=== PATIENT | female | born 1975 | race African-American/Black ===

== ENCOUNTER 2017-09-15 15:45 | Observation (INO) | payer MEDICAID ==
[~2017-09-15] VITALS: Ht 162.6 cm; Wt 72.6 kg
[2017-09-15] MEDS ORDERED: RIVA10TA PO (15:51)
[2017-09-15] MEDS ORDERED: FURO-152 PO (15:51)
[2017-09-15] MEDS ORDERED: ONDANSETRON HCL 4MG/2ML VIAL IV STA (16:21)
[2017-09-15] MEDS ORDERED: SODIUM CHLORIDE 0.9% 1,000 ML IV ONE ×3 (16:21→19:56)
[2017-09-15 16:51] LABS: BASOPHILS % 0.3 % (0.0-2.0); EOSINOPHILS % 0.1 % (0.0-5.0); HEMATOCRIT. 30.7 % (36.0-48.0); HEMOGLOBIN. 9.8 g/dL (12.0-16.0); MEAN CORPUSCULAR HEMOGLOBIN 29.4 pg (28.0-32.0); MEAN CORPUSCULAR VOLUME 91.7 fL (81.0-99.0); MEAN PLATELET VOLUME 9.7 fl (7.4-10.4); MONOCYTES % 3.5 % (2.0-8.0); NEUTROPHILS % 73.1 % (40.0-76.0); PLATELET 129 x1000/uL (130-400); RED BLOOD CELL COUNT 3.34 mill/uL (4.2-5.4); RED CELL DISTRIBUTION WIDTH 16.6 % (11.6-14.6)
[2017-09-15 16:54] LABS: CHLORIDE 104 mEq/L (98-107); INR 1.5; PROTHROMBIN TIME 15.7 sec (9.4-11.6)
[2017-09-15 17:00] LABS: HCG SCREEN NEGATIVE
[2017-09-15 17:03] LABS: CARBON DIOXIDE 26 mEq/L (21-32); ETHANOL BLOOD < 10 mg/dL; TROPONIN I < 0.02 ng/mL (0.00-0.04)
[2017-09-15] MEDS ORDERED: FLUCONAZOLE 200MG/100ML PREMIX IV ONE (20:15)
[2017-09-15] MEDS ORDERED: FLUCONAZOLE 200 MG/100ML BAG 100 ML IV ONE (20:30)
[2017-09-15] MEDS ORDERED: POTASSIUM CHLORIDE 20MEQ TABLET SR PO ONE (21:15)
[2017-09-15] MEDS ORDERED: ONDANSETRON HCL 4MG/2ML VIAL IV PRN (22:00)
[2017-09-15] MEDS ORDERED: DIPHENHYDRAMINE 50MG/ML VIAL IV PRN (22:00)
[2017-09-15] MEDS ORDERED: ACETAMINOPHEN 325MG TABLET PO PRN (22:00)
[2017-09-15] MEDS ORDERED: MAGNESIUM 2 G PREMIX 50 ML IV PRN (22:00)
[2017-09-15 22:20] VITALS: BP 84/53
[2017-09-15 22:27] LABS: CLARITY URINE CLEAR (CLEAR); COLOR URINE YELLOW (YELLOW); GLUCOSE URINE NEGATIVE (NEGATIVE); KETONES URINE NEGATIVE (NEGATIVE); LEUKOCYTE ESTERASE URINE 3+ (NEGATIVE); NITRITE URINE POSITIVE (NEGATIVE); OCCULT BLOOD URINE TRACE (NEGATIVE); PROTEIN URINE NEGATIVE (NEGATIVE); SPECIFIC GRAVITY URINE 1.007 (1.005-1.030)
[2017-09-15 22:39] LABS: *AMPHETAMINES SCREEN URINE NEGATIVE (NEGATIVE); *BARBITURATES SCREEN URINE NEGATIVE (NEGATIVE); *BENZODIAZEPINES SCREEN URINE NEGATIVE (NEGATIVE); *COCAINE SCREEN URINE NEGATIVE (NEGATIVE); CANNABINOID URINE SCREEN NEGATIVE (NEGATIVE); METHADONE URINE SCREEN NEGATIVE (NEGATIVE); OPIATES URINE SCREEN NEGATIVE (NEGATIVE); PHENCYCLIDINE URINE SCREEN NEGATIVE (NEGATIVE)
[2017-09-15 22:44] VITALS: BP 144/53
[2017-09-15 22:54] VITALS: BP 84/53
[2017-09-15] MEDS ORDERED: HYDROCODONE/ACETAMINOPHEN 5/325MG TABLET PO PRN (23:15)
[2017-09-16] VITALS (9 sets, daily range): BP systolic 84–95; BP diastolic 44–56
[2017-09-16] MEDS ORDERED: DEXT 5%/0.45% NACL KCL 40MEQ/L 1,000 ML IV SCH
[2017-09-16] MEDS: IPRATROPIUM/ALBUTEROL 0.5-3(2.5)MG/3ML NEB INH PRN ×2 (01:06→04:36)
[2017-09-16] MEDS: CLOTRIMAZOLE 10MG TROCHE MM SCH ×4 (06:55→17:07)
[2017-09-16 08:42] LABS: BASOPHILS % 0.4 % (0.0-2.0); HEMATOCRIT. 26.8 % (36.0-48.0); HEMOGLOBIN. 8.5 g/dL (12.0-16.0); LYMPHOCYTES % 27.4 % (20.0-50.0); MEAN CORPUSCULAR HEMOGLOBIN 29.4 pg (28.0-32.0); MEAN CORPUSCULAR VOLUME 92.5 fL (81.0-99.0); MEAN PLATELET VOLUME 9.1 fl (7.4-10.4); MONOCYTES % 3.9 % (2.0-8.0); NEUTROPHILS % 68.3 % (40.0-76.0); PLATELET 105 x1000/uL (130-400); RED BLOOD CELL COUNT 2.89 mill/uL (4.2-5.4); RED CELL DISTRIBUTION WIDTH 17.1 % (11.6-14.6)
[2017-09-16] MEDS ORDERED: POTASSIUM CHLORIDE 20MEQ TABLET SR PO SCH (09:00)
[2017-09-16] MEDS ORDERED: FAMOTIDINE 20MG/2ML VIAL IV SCH (09:00)
[2017-09-16] MEDS ORDERED: FLUCONAZOLE 200MG/100ML PREMIX IV SCH (09:00)
[2017-09-16 09:12] LABS: CARBON DIOXIDE 23 mEq/L (21-32); CHLORIDE 113 mEq/L (98-107)
[2017-09-16] MEDS ORDERED: POTASSIUM CHLORIDE 20MEQ TABLET SR PO NR (12:45)
[2017-09-16] MEDS ORDERED: MAGNESIUM 2 G PREMIX 50 ML IV NR (13:30)
[2017-09-16] MEDS: CEFTRIAXONE 1 G PREMIX 50 ML IV SCH ×2 (14:07→15:36)
[2017-09-16] MEDS ORDERED: RIVAROXABAN 10 MG TABLET PO SCH (17:00)
[2017-09-16] MEDS ORDERED: FLUCONAZOLE 200 MG/100ML BAG 100 ML IV SCH (22:00)
== END 2017-09-16 17:50 | disposition short-term general hospital (02) ==
LOC: ER 17:55 → 5EST 19:49 → INTOOBSV 19:49 → EDBEDREQ 19:54 → EDBEDREQTM 19:54 → ENRESERV 20:11
PROVIDERS: ADMIT Internal Medicine; ATTEND Internal Medicine
DX: B37.0 Candidal stomatitis (principal); K75.9 Inflammatory liver disease, unspecified; E43 Unspecified severe protein-calorie malnutrition; D64.9 Anemia, unspecified; E87.6 Hypokalemia; E87.8 Other disorders of electrolyte and fluid balance, not elsewhere classified; R64 Cachexia; N39.0 Urinary tract infection, site not specified; Z86.718 Personal history of other venous thrombosis and embolism; Z87.11 Personal history of peptic ulcer disease; Z79.01 Long term (current) use of anticoagulants; Z98.84 Bariatric surgery status
CPT/HCPCS: 36415; 71010; 74176; 80053; 80305; 81001; 83605; 83735; 83880; 84484; 84703; 85025; 85610; 86703; 87040; 87077; 87086; 87186; 93005; 93970; 94640; 94664; 96361; 96365; 96366; 96367; 96375; 99291; G0378; G0482; J0696; J1450; J2405; J3475; J3490; J7030; 96374; J7620